=== PATIENT | male | born 1940 | race Caucasian/White ===

== ENCOUNTER 2022-01-13 21:25 | Emergency (ER) | payer MEDICARE, OTHER ==
[~2022-01-13] VITALS: Ht 177.8 cm; Wt 59.5 kg
[2022-01-13 21:34] VITALS: TEMP 98
[2022-01-13 22:08] LABS: BASO # 0.1 K/mm3 (0.0-0.2); BASO % 0.7 % (0.0-2.0); EOS # 0.5 K/mm3 (0.0-0.7); EOS % 5.3 % (0.0-4.0); GRAN # 6.7 K/mm3 (1.4-6.5); GRAN % 74.7 % (42.2-75.2); LYMPH # 1.4 K/mm3 (1.2-3.4); LYMPH % 15.4 % (20.0-51.0); MEAN CELL VOLUME 101 fl (80.0-100.0); MEAN CORPUSCULAR HGB CONC 33 g/dl (33.0-37.0); MEAN PLATELET VOLUME 10.1 fl (7.4-10.4); MONO # 0.3 K/mm3 (0.1-0.6); MONO % 3.6 % (1.7-9.3); PLATELET COUNT 257 K/mm3 (130-400); RED BLOOD COUNT 2.67 M/mm3 (4.20-5.60)
[2022-01-13 22:09] LABS: HEMOGLOBIN 8.9 g/dl (13.5-18.0); MEAN CORPUSCULAR HEMOGLOBIN 33 pg (27-31)
[2022-01-13 22:22] LABS: ALANINE AMINOTRANSFERASE 18 U/L (0-55); ALBUMIN 2.1 gm/dL (3.4-4.8); ALKALINE PHOSPHATASE 98 U/L (40-150); ANION GAP 9 mmol/L (7-16); AST,SGOT 35 U/L (5-34); BLOOD UREA NITROGEN 20 mg/dL (8-26); CALCIUM 8.4 mg/dL (8.4-10.2); CARBON DIOXIDE 23 mmol/L (23-31); CHLORIDE 107 mmol/L (98-107); CREATININE, serum 1.19 mg/dL (0.72-1.25); GLUCOSE 132 mg/dL (70-99); POTASSIUM 3.9 mmol/L (3.5-4.5); SODIUM 139 mmol/L (136-145); TOTAL PROTEIN 6.5 gm/dL (6.2-8.1)
[2022-01-13 22:27] LABS: TROPONIN-I < 0.010 ng/mL (0.00-0.033)
[2022-01-14] MEDS ORDERED: LASIX 20MG TABL20 MG PO (00:51)
[2022-01-14] MEDS ORDERED: ROXICODONE 55 MG/TAB PO (00:51)
[2022-01-14 01:00] VITALS: BP 128/70; PULSE 86
== END 2022-01-14 01:07 | disposition home or self-care (01) ==
LOC: COL.ER 21:25
PROVIDERS: Personal Emergency Response Attendant
DX: I71.9 Aortic aneurysm of unspecified site, without rupture (principal); J81.1 Chronic pulmonary edema; Z95.1 Presence of aortocoronary bypass graft; Z28.310 Unvaccinated for COVID-19
CPT/HCPCS: J1200; J7030; J7512; Q9967